=== PATIENT | female | born 1995 | race Caucasian/White ===

== ENCOUNTER 2018-04-18 17:41 | Emergency (ER) | payer OTHER ==
[~2018-04-18] VITALS: Ht 149.9 cm; Wt 44.5 kg
[~2018-04-18 17:41] MED LIST: CEPH500C3 PO; HYDR-3533 PO; IBUP800T23 PO; SILV1CRE80 TOP
[2018-04-18 18:00] VITALS: BP 116/63; PULSE 125; RESP 20; TEMP 98.5; O2SAT 97
--- NOTE | 2018-04-18 19:54 | PD ---
HPI Chief Complaint: GI Complaint Time Seen by Provider: 19:53 Travel History International Travel<30 days: No Contact w/Intl Traveler<30days: No Traveled to known affect area: No History of Present Illness HPI 23-year-old female with a history of asthma presents emergency department for evaluation of abdominal pain, generalized, but worse in the right lower quadrant that began this morning. Patient states she came home from work and become very nauseous. She began vomiting. She has an episode of diarrhea. She states that her abdomen began to hurt. It is tight, cramping, with intermittent sharp pains. Pain is primarily in the right lower quadrant. She denies any abdominal surgeries. States her menstrual cycle was a week ago. Denies any fever or chills. She denies any urinary symptoms. She denies any vaginal discharge or bleeding. Patient has no other symptoms to report. PFSH Past Medical History Anemia: Yes Asthma: Yes Diminished Hearing: No Psychiatric: Yes (PTSD) Immunizations Current: Yes LMP: earlier this month : 0 Social History Alcohol Use: No Tobacco Use: No Substance Use: No Allergies-Medications (Allergen,Severity, Reaction): Coded Allergies: No Known Allergies (Unverified Adverse Reaction, Unknown, 04/18/18) Reported Meds & Prescriptions Reported Meds & Active Scripts Active Phenergan (Promethazine HCl) 25 Mg Tablet 25 Mg PO Q6H PRN Bentyl (Dicyclomine HCl) 10 Mg Cap 10 Mg PO TID PRN Keflex (Cephalexin Monohydrate) 500 Mg Cap 500 Mg PO QID Silver Sulfadiazine 1 % Cre 1 % TOP DAILY 10 Days Ibuprofen 800 Mg Tab 800 Mg PO Q6HR PRN Lortab 5 mg/325 mg (Hydrocodone/Acetaminophen 5 mg/325 mg) 1 Tab 1 Tab PO Q6H PRN Review of Systems Except as stated in HPI: all other systems reviewed are Neg Physical Exam Narrative GENERAL: Well-nourished female patient, no acute distress SKIN: Focused skin assessment warm/dry. HEAD: Atraumatic. Normocephalic. EYES: Pupils equal and round. No scleral icterus. No injection or drainage. ENT: No nasal bleeding or discharge. Mucous membranes pink and moist. NECK: Trachea midline. No JVD. CARDIOVASCULAR: Tachycardic rate and rhythm. No murmur appreciated. RESPIRATORY: No accessory muscle use. Clear to auscultation. Breath sounds equal bilaterally. GASTROINTESTINAL: Abdomen soft, nondistended. Generalized tenderness to palpation, with mild guarding in the right lower quadrant. No rebound tenderness.. Hepatic and splenic margins not palpable. MUSCULOSKELETAL: No obvious deformities. No clubbing. No cyanosis. No edema. NEUROLOGICAL: Awake and alert. No obvious cranial nerve deficits. Motor grossly within normal limits. Normal speech. PSYCHIATRIC: Appropriate mood and affect; insight and judgment normal. Data Data Last Documented VS Vital Signs Date Time Temp Pulse Resp B/P (MAP) Pulse Ox O2 Delivery O2 Flow Rate FiO2 04/18/18 22:28 04/18/18 21:38 98.5 90 18 100 Room Air Orders Orders Complete Blood Count With Diff (04/18/18 20:) Comprehensive Metabolic Panel (04/18/18 20:01) Lipase (04/18/18 20:01) Prothrombin Time / Inr (Pt) (04/18/18 20:) Act Partial Throm Time (Ptt) (04/18/18 20:01) Urinalysis - C+S If Indicated (04/18/18 20:01) Ct Abd/Pel W Iv Contrast(Rout) (04/18/18 20:01) Iv Access Insert/Monitor (04/18/18 20:01) Ecg Monitoring (04/18/18 20:) Oximetry (04/18/18 20:01) Sodium Chlor 0.9% 1000 Ml Inj (Ns 1000 M (04/18/18 20:01) Sodium Chloride 0.9% Flush (Ns Flush) (04/18/18 20:15) Ketorolac Inj (Toradol Inj) (04/18/18 20:15) Ed Urine Pregnancytest Poc (04/18/18 20:01) Oral Contrast - Adult (04/18/18 20:09) Ondansetron Odt (Zofran Odt) (04/18/18 20:15) Diatrizoate Liq ( Gastroview Liq) (04/18/18 20:24) Iohexol 350 Inj (Omnipaque 350 Inj) (04/18/18 22:00) Ed Discharge Order (04/18/18 22:13) Labs Laboratory Tests Test 04/18/18 20:20 White Blood Count 10.3 TH/MM3 Red Blood Count 5.11 MIL/MM3 Hemoglobin 15.3 GM/DL Hematocrit 45.4 % Mean Corpuscular Volume 88.8 FL Mean Corpuscular Hemoglobin 30.0 PG Mean Corpuscular Hemoglobin Concent 33.8 % Red Cell Distribution Width 13.2 % Platelet Count 217 TH/MM3 Mean Platelet Volume 8.2 FL Neutrophils (%) (Auto) 92.4 % Lymphocytes (%) (Auto) 4.2 % Monocytes (%) (Auto) 3.0 % Eosinophils (%) (Auto) 0.3 % Basophils (%) (Auto) 0.1 % Neutrophils # (Auto) 9.5 TH/MM3 Lymphocytes # (Auto) 0.4 TH/MM3 Monocytes # (Auto) 0.3 TH/MM3 Eosinophils # (Auto) 0.0 TH/MM3 Basophils # (Auto) 0.0 TH/MM3 CBC Comment DIFF FINAL Differential Comment Prothrombin Time 10.9 SEC Prothromb Time International Ratio 1.1 RATIO Activated Partial Thromboplast Time 24.1 SEC Urine Color YELLOW Urine Turbidity HAZY Urine pH 6.5 Urine Specific [place] 1.035 Urine Protein 30 mg/dL Urine Glucose (UA) NEG mg/dL Urine Ketones 40 mg/dL Urine Occult Blood NEG Urine Nitrite NEG Urine Bilirubin NEG Urine Urobilinogen 4.0 MG/DL Urine Leukocyte Esterase NEG Urine RBC 2 /hpf Urine WBC 1 /hpf Urine Squamous Epithelial Cells 5 /hpf Urine Mucus FEW /lpf Microscopic Urinalysis Comment CULT NOT INDICATED Blood Urea Nitrogen 16 MG/DL Creatinine 0.78 MG/DL Random Glucose 89 MG/DL Total Protein 7.5 GM/DL Albumin 4.5 GM/DL Calcium Level 9.0 MG/DL Alkaline Phosphatase 55 U/L Aspartate Amino Transf (AST/SGOT) 15 U/L Alanine Aminotransferase (ALT/SGPT) 19 U/L Total Bilirubin 0.9 MG/DL Sodium Level 139 MEQ/L Potassium Level 3.9 MEQ/L Chloride Level 102 MEQ/L Carbon Dioxide Level 24.6 MEQ/L Anion Gap 12 MEQ/L Estimat Glomerular Filtration Rate 91 ML/MIN Lipase 68 U/L MDM Medical Decision Making Medical Screen Exam Complete: Yes Emergency Medical Condition: Yes Medical Record Reviewed: Yes Differential Diagnosis Gastroenteritis versus gastritis versus colitis versus appendicitis Narrative Course 23-year-old female presents emergency department for evaluation. Patient appears without distress. Vital signs are stable. She is treated for pain and given IV normal saline fluid. Imaging studies are complete. Laboratory Tests Test 04/18/18 20:20 White Blood Count 10.3 TH/MM3 Red Blood Count 5.11 MIL/MM3 Hemoglobin 15.3 GM/DL Hematocrit 45.4 % Mean Corpuscular Volume 88.8 FL Mean Corpuscular Hemoglobin 30.0 PG Mean Corpuscular Hemoglobin Concent 33.8 % Red Cell Distribution Width 13.2 % Platelet Count 217 TH/MM3 Mean Platelet Volume 8.2 FL Neutrophils (%) (Auto) 92.4 % Lymphocytes (%) (Auto) 4.2 % Monocytes (%) (Auto) 3.0 % Eosinophils (%) (Auto) 0.3 % Basophils (%) (Auto) 0.1 % Neutrophils # (Auto) 9.5 TH/MM3 Lymphocytes # (Auto) 0.4 TH/MM3 Monocytes # (Auto) 0.3 TH/MM3 Eosinophils # (Auto) 0.0 TH/MM3 Basophils # (Auto) 0.0 TH/MM3 CBC Comment DIFF FINAL Differential Comment Prothrombin Time 10.9 SEC Prothromb Time International Ratio 1.1 RATIO Activated Partial Thromboplast Time 24.1 SEC Urine Color YELLOW Urine Turbidity HAZY Urine pH 6.5 Urine Specific [place] 1.035 Urine Protein 30 mg/dL Urine Glucose (UA) NEG mg/dL Urine Ketones 40 mg/dL Urine Occult Blood NEG Urine Nitrite NEG Urine Bilirubin NEG Urine Urobilinogen 4.0 MG/DL Urine Leukocyte Esterase NEG Urine RBC 2 /hpf Urine WBC 1 /hpf Urine Squamous Epithelial Cells 5 /hpf Urine Mucus FEW /lpf Microscopic Urinalysis Comment CULT NOT INDICATED Blood Urea Nitrogen 16 MG/DL Creatinine 0.78 MG/DL Random Glucose 89 MG/DL Total Protein 7.5 GM/DL Albumin 4.5 GM/DL Calcium Level 9.0 MG/DL Alkaline Phosphatase 55 U/L Aspartate Amino Transf (AST/SGOT) 15 U/L Alanine Aminotransferase (ALT/SGPT) 19 U/L Total Bilirubin 0.9 MG/DL Sodium Level 139 MEQ/L Potassium Level 3.9 MEQ/L Chloride Level 102 MEQ/L Carbon Dioxide Level 24.6 MEQ/L Anion Gap 12 MEQ/L Estimat Glomerular Filtration Rate 91 ML/MIN Lipase 68 U/L Last Impressions Abdomen/Pelvis CT 04/18/182000 Signed Impressions: CONCLUSION: No abnormality is identified to explain the clinical symptoms. No acute finding is visualized. Findings are reviewed and discussed with my attending physician. Patient will be discharged home to follow-up with a primary care provider. She agrees to return immediately with any acute worsening symptoms Diagnosis Primary Impression: Gastroenteritis Referrals: Primary Care Physician Patient Instructions: Gastroenteritis (ED), General Instructions Departure Forms: Tests/Procedures, Work Release Enter return to work date: Apr 21, 2018 Additional Instructions: [place] diet Clear liquids, advance as tolerated Follow-up with a primary care provider Return immediately with acute worsening symptoms Med/Other Pt SpecificInfo: Prescription(s) given Scripts Promethazine (Phenergan) 25 Mg Tablet 25 MG PO Q6H Y for NAUSEA OR VOMITING, #15 TAB 0 Refills Prov: Cee Hendricks 04/18/18 Dicyclomine (Bentyl) 10 Mg Cap 10 MG PO TID Y for Bowel Management, #15 CAP 0 Refills Prov: Cee Hendricks 04/18/18 Disposition: 01 DISCHARGE HOME Condition: Stable Cee Hendricks April 18, 2018 19:53
[2018-04-18 20:00] VITALS: BP 124/67; PULSE 120; RESP 20; O2SAT 100
[2018-04-18] MEDS ORDERED: SODIUM CHLOR 0.9% 1000 ML INJ 1,000 ML IV SCH (20:01)
[2018-04-18] MEDS ORDERED: KETOROLAC TROMETHAMINE 30 MG/ML (IVP) VIAL IVP ONE (20:15)
[2018-04-18] MEDS ORDERED: SODIUM CHLORIDE 0.9% FLUSH 10 ML FLUSH IV FLUSH PRN (20:15)
[2018-04-18] MEDS ORDERED: ONDANSETRON ODT 4 MG TAB PO ONE (20:15)
[2018-04-18] MEDS ORDERED: DIATRIZOATE MEGLUM/DIATRIZOATE SOD 9 ML CUP ONE (20:24)
[2018-04-18 21:10] LABS: AUTOMATED NEUTROPHIL # 9.5 TH/MM3 (1.8-7.7); BASOPHIL % 0.1 % (0.0-2.0); EOSINOPHIL % 0.3 % (0.0-4.0); HEMATOCRIT 45.4 % (35.0-46.0); HEMOGLOBIN 15.3 GM/DL (11.6-15.3); LYMPH % 4.2 % (9.0-44.0); LYMPHOCYTE # 0.4 TH/MM3 (1.0-4.8); MEAN CELL VOLUME 88.8 FL (80.0-100.0); MEAN CORPUSCULAR HGB CONC 33.8 % (32.0-36.0); MEAN PLATELET VOLUME 8.2 FL (7.0-11.0); MONOCYTE # 0.3 TH/MM3 (0-0.9); NEUT % 92.4 % (16.0-70.0); PLATELET COUNT 217 TH/MM3 (150-450); RED BLOOD COUNT 5.11 MIL/MM3 (4.00-5.30); RED CELL DISTRIBUTION WIDTH 13.2 % (11.6-17.2); WHITE BLOOD COUNT 10.3 TH/MM3 (4.0-11.0)
[2018-04-18 21:20] LABS: BLOOD, URINE NEG (NEG); GLUCOSE,URINE NEG (NEG); INTERNATIONAL NORMALIZED RATIO 1.1 RATIO; KETONE, URINE 40 mg/dL (NEG); MUCUS URINE FEW /lpf (OCC); NITRITE,URINE NEG (NEG); PH, URINE 6.5 (5.0-8.5); PROTHROMBIN TIME - PATIENT 10.9 SEC (9.8-11.6); SQUAMOUS EPITHELIAL CELL URINE 5 /hpf (0-5); URINE COLOR YELLOW (YELLW/STRAW); URINE LEUKOCYTE ESTERASE NEG (NEG)
[2018-04-18 21:22] LABS: ALBUMIN 4.5 GM/DL (3.4-5.0); AST (GOT) 15 U/L (15-37); BICARBONATE 24.6 MEQ/L (21.0-32.0); BILIRUBIN, URINE NEG (NEG); BLOOD UREA NITROGEN 16 MG/DL (7-18); CHLORIDE 102 MEQ/L (98-107); CREATININE 0.78 MG/DL (0.50-1.00); GLOMERULAR FILTRATION RATE 91 ML/MIN (>89); GLUCOSE,RANDOM 89 MG/DL (74-106); SODIUM (NA) 139 MEQ/L (136-145)
[2018-04-18 21:23] LABS: ALT (GPT) 19 U/L (10-53)
[2018-04-18 21:25] LABS: ALKALINE PHOSPHATASE 55 U/L (45-117); TOTAL BILIRUBIN ADULT 0.9 MG/DL (0.2-1.0); TOTAL PROTEIN 7.5 GM/DL (6.4-8.2)
[2018-04-18 21:38] VITALS: BP 106/69; PULSE 90; RESP 18; TEMP 98.5; O2SAT 100
[2018-04-18] MEDS ORDERED: IOHEXOL 350 MG/ML 10 ML VIAL (for RAD DIAG) IVCONTRAST ONE (22:00)
--- NOTE | 2018-04-18 22:11 | RADRPT ---
EXAM DATE: 04/18/2018 10:05 PM EDT AGE/SEX: 23 years / Female INDICATIONS: Right side abdomen pain with vomiting. CLINICAL DATA: This is the patient's initial encounter. Patient reports that signs and symptoms have been present for 1 day and indicates a pain score of 7/10. MEDICAL/SURGICAL HISTORY: None. None. ORAL CONTRAST: Prescribed oral contrast ingested. RADIATION DOSE: 4.51 CTDI (mGy) COMPARISON: No prior [facility] exams available for comparison. TECHNIQUE: Multiple contiguous axial images were obtained through the abdomen and pelvis following b olus infusion of 80 ml Omnipaque 350 (iohexol) nonionic water-soluble contrast as a single exam dos e. Prescribed oral contrast ingested. Using automated exposure control and adjustment of the mA and/ or kV according to patient size, the radiation dose was kept as low as reasonably achievable to obtai n optimal diagnostic quality images. FINDINGS: Lower chest: No acute abnormality is identified. Hepatobiliary: No focal liver lesion is identified. Hepatic vasculature demonstrates no abnormality. No calcified gallstones are present. Kidneys: No hydronephrosis, stone, or mass. Adrenal Glands: Within normal limits. Spleen: Within normal limits. Pancreas: Within normal limits. Vascular: The aorta is nonaneurysmal. Bowel/Mesentery: The stomach and small bowel demonstrate no abnormality. No acute colon abnormality i s seen. There is no free intraperitoneal air or fluid. Appendix and terminal ileum have a normal appe arance. Abdominal Wall: No hernia is visualized. Retroperitoneum: No lymphadenopathy. Bladder: No wall thickening or mass. Reproductive: Uterus has a normal appearance. There are cysts/follicles in the ovaries bilaterally. Inguinal: No lymphadenopathy or hernia. Musculoskeletal: No acute osseous abnormality is identified. CONCLUSION: No abnormality is identified to explain the clinical symptoms. No acute finding is visualized. Electronically signed by: Pedro Brody MD 04/18/2018 10:10 PM EDT
[2018-04-18] MEDS ORDERED: DICY10 PO (22:16)
[2018-04-18] MEDS ORDERED: PROM25TA10 PO (22:16)
== END 2018-04-18 22:36 | disposition home or self-care (01) ==
LOC: NEPD 17:41
DX: K52.9 Noninfective gastroenteritis and colitis, unspecified (principal)
CPT/HCPCS: 74177; 80053; 81001; 83690; 84703; 85025; 85610; 85730; 96361; 96374; 99285; J1885; J7030; Q9963; Q9967